=== PATIENT | female | born 1950 | race American Indian/Alaskan Native ===

== ENCOUNTER 2019-06-24 10:23 | Outpatient (REF) | payer OTHER, SELFPAY ==
[2019-06-24 17:00] LABS: Anion Gap 7.4 mmol/L; BUN 20 mg/dL; CO2 29.6 mmol/L; CREATININE 1.23 mg/dL; Calcium 9.7 mg/dL; Calculated LDL 173 mg/dL; Chloride 105 mmol/L; Cholesterol 251 mg/dL; Estimated GFR 58.34; Glucose 91 mg/dL; HDL Cholesterol 65 mg/dL; Potassium 4.9 mmol/L; Sodium 142 mmol/L; Triglyceride 65 mg/dL
== END 2019-06-24 10:43 ==
LOC: NCHCN 10:23
PROVIDERS: Visit Provider Family Medicine
DX: Z82.49 Family history of ischemic heart disease and other diseases of the circulatory system (principal); Z13.228 Encounter for screening for other metabolic disorders; Z13.220 Encounter for screening for lipoid disorders
CPT/HCPCS: 80048; 80061

== ENCOUNTER 2019-11-27 14:51 | Outpatient (REF) | payer OTHER, SELFPAY ==
[2019-11-27 21:25] LABS: Absolute Basophil Count 0.01 k/cumm; Absolute Eosinophil Count 0.04 k/cumm; Absolute Lymphocyte Count 2.51 k/cumm; Absolute Monocyte Count 0.83 k/cumm; Absolute Neutrophil Count 4.55 k/cumm; Basophils % 0.1; Eosinophils % 0.5; HCT 42.4 %; HGB 13.8 g/dL; Lymphocytes % 31.6; Mean Corp. HGB Concentration 32.5 g/dL; Mean Corpuscular Hemoglobin 26.3 pg; Mean Corpuscular Volume 80.9 fL; Mean Platelet Volume 11.2 fL; Monocytes % 10.5; Neutrophils % 57.3; Platelet Count 345 x1000/uL; RBC 5.24 m/cumm; RBC Distribution Width 14.9 %; White Blood Cell Count 7.94 k/cumm
[2019-11-27 22:05] LABS: ALT 35 U/L; AST 30 U/L; Albumin 4.4 g/dL; Alkaline Phosphatase 114 U/L; Anion Gap 9.4 mmol/L; BUN 17 mg/dL; Bilirubin, Total 0.6 mg/dL; CO2 26.6 mmol/L; CREATININE 1.09 mg/dL; Calcium 9.7 mg/dL; Chloride 102 mmol/L; Glucose 84 mg/dL; Potassium 4.1 mmol/L; Sodium 138 mmol/L; TSH (W/Ref FT4) 2.87 uIU/mL; Total Protein 7.8 g/dL
[2019-11-30 09:47] LABS: Vitamin D 25 Total 49.3 ng/ml
[2019-12-01 10:48] LABS: Lyme Ab w Rflx to Lyme Confirm Negative (Negative)
[2019-12-01 18:26] LABS: Anaplasma phagocytophilum Negative (Negative); B. miyamotoi PCR Negative (Negative); Babesia divergens/MO-1 Negative (Negative); Babesia duncani Negative (Negative); Babesia microti Negative (Negative); Ehrlichia chaffeensis Negative (Negative); Ehrlichia ewingii/canis Negative (Negative); Ehrlichia muris eauclairensis Negative (Negative)
== END 2019-11-27 15:11 ==
LOC: NCHCN 14:51
PROVIDERS: PCP Family Medicine; Visit Provider Family Medicine
DX: E78.5 Hyperlipidemia, unspecified (principal); M79.10 Myalgia, unspecified site; R53.83 Other fatigue
CPT/HCPCS: 80053; 82306; 87798; 84443; 85025; 86618

== ENCOUNTER 2020-06-03 17:38 | Outpatient (REF) | payer OTHER, SELFPAY ==
[2020-06-03 20:53] LABS: Calculated LDL 146 mg/dL; Cholesterol 225 mg/dL; Glucose 86 mg/dL; HDL Cholesterol 62 mg/dL; Triglyceride 86 mg/dL
== END 2020-06-03 17:58 ==
LOC: NCHCN 17:38
PROVIDERS: PCP Family Medicine; Visit Provider Family Medicine
DX: Z00.00 Encounter for general adult medical examination without abnormal findings (principal); E78.5 Hyperlipidemia, unspecified
CPT/HCPCS: 80061; 82947

== ENCOUNTER 2021-11-03 16:10 | Outpatient (REF) | payer MEDICARE, SELFPAY ==
[2021-11-05 12:12] LABS: COVID-19 RT-PCR UVMMC Result Negative (Negative)
== END 2021-11-03 16:11 | disposition home or self-care (01) ==
LOC: NCHCN 16:10
PROVIDERS: PCP Family Medicine; Visit Provider Family Medicine
DX: Z20.822 Contact with and (suspected) exposure to COVID-19 (principal); J06.9 Acute upper respiratory infection, unspecified
CPT/HCPCS: U0003

== ENCOUNTER 2022-02-08 08:51 | Outpatient (REF) | payer MEDICARE, SELFPAY ==
[2022-02-08 14:56] LABS: ESR 8 mm/hr (0-30)
[2022-02-08 14:57] LABS: Abs Immature Grans 0.01 10^3/uL (0.0-0.06); Absolute Basophil Count 0.02 10^3/uL (0.0-0.2); Absolute Eosinophil Count 0.05 10^3/uL (0.0-0.7); Absolute Lymphocyte Count 2.01 10^3/uL (1.2-3.4); Absolute Monocyte Count 0.54 10^3/uL (0.1-0.8); Absolute Neutrophil Count 2.59 10^3/uL (1.2-6.7); Basophils % 0.4; HCT 40.3 % (36.0-46.0); Immature Grans % 0.2; Lymphocytes % 38.5; MCH 26.4 pg (27.0-33.0); MCHC 32.3 % (32.0-36.0); MCV 82 fL (80-95); MPV 10.7 fL (8.0-11.0); Monocytes % 10.3; Neutrophils % 49.6; Platelet Count 278 10^3/uL (130-400); RBC 4.93 10^6/uL (3.93-5.22); RDW 14.5 % (11.7-14.6); RDW-SD 43.3 fL; WBC 5.22 10^3/uL (4.4-10.8)
[2022-02-08 15:57] LABS: Iron 88 ug/dL (50-170)
[2022-02-08 16:27] LABS: ALT 29 U/L (14-59); AST 29 U/L (15-37); Albumin 3.5 g/dL (3.4-5.0); Alkaline Phosphatase 90 U/L (46-116); Anion Gap 10.1 mmol/L (3-11); BUN 19 mg/dL (7-18); Bilirubin, Total 0.5 mg/dL (0.2-1.0); CO2 27.9 mmol/L (21.0-32.0); CREATININE 1.1 mg/dL (0.55-1.02); Calcium 8.6 mg/dL (8.5-10.1); Chloride 115 mmol/L (98-107); Estimated GFR 48.82 (mL/min/1.73m2); Ferritin 87 ng/mL (8-252); Glucose 85 mg/dL (74-106); Potassium 4.4 mmol/L (3.5-5.1); Sodium 153 mmol/L (136-145); TSH (W/Ref FT4) 1.71 uIU/mL (0.36-3.74); Total Protein 6.6 g/dL (6.4-8.2); Vitamin B12 654 pg/mL (193-986)
[2022-02-08 17:07] LABS: C-Reactive Protein 0.12 mg/dL (0.0-0.3)
[2022-02-09 10:02] LABS: HIV-1/2 Ag & Ab Screen Negative (Negative)
[2022-02-09 10:14] LABS: Hepatitis C Ab w Rflx HCV PCR Negative (Negative)
== END 2022-02-08 08:52 | disposition home or self-care (01) ==
LOC: NCHCN 08:51
PROVIDERS: PCP Family Medicine; Visit Provider Family Medicine
DX: R63.4 Abnormal weight loss (principal); Z11.4 Encounter for screening for human immunodeficiency virus [HIV]; Z11.59 Encounter for screening for other viral diseases; R53.83 Other fatigue
CPT/HCPCS: 80053; 85652; 86803; 87389; 82607; 82728; 83540; 84443; 85025; 86140

== ENCOUNTER 2022-02-12 18:34 | Outpatient (REF) | payer MEDICARE, SELFPAY ==
[2022-02-12 21:45] LABS: Anion Gap 4.6 mmol/L (3-11); BUN 23 mg/dL (7-18); CO2 27.4 mmol/L (21.0-32.0); Chloride 101 mmol/L (98-107); Glucose 86 mg/dL (74-106); Potassium 3.6 mmol/L (3.5-5.1); Sodium 133 mmol/L (136-145)
== END 2022-02-12 18:35 | disposition home or self-care (01) ==
LOC: NCHCN 18:34
PROVIDERS: PCP Family Medicine; Visit Provider Family Medicine
DX: E87.0 Hyperosmolality and hypernatremia (principal)
CPT/HCPCS: 80048

== ENCOUNTER 2022-03-07 10:31 | Outpatient (REF) | payer MEDICARE, SELFPAY ==
[2022-03-07 17:24] LABS: Anion Gap 8.5 mmol/L (3-11); BUN 21 mg/dL (7-18); CO2 29.5 mmol/L (21.0-32.0); Chloride 105 mmol/L (98-107); Glucose 97 mg/dL (74-106); Potassium 3.8 mmol/L (3.5-5.1); Sodium 143 mmol/L (136-145)
== END 2022-03-07 10:32 | disposition home or self-care (01) ==
LOC: NCHCN 10:31
PROVIDERS: PCP Family Medicine; Visit Provider Family Medicine
DX: E87.1 Hypo-osmolality and hyponatremia (principal)
CPT/HCPCS: 80048

== ENCOUNTER 2022-04-20 20:57 | Outpatient (REF) | payer MEDICARE, SELFPAY ==
[2022-04-20 21:06] LABS: Abs Immature Grans 0.03 10^3/uL (0.0-0.06); Absolute Basophil Count 0.03 10^3/uL (0.0-0.2); Absolute Eosinophil Count 0.09 10^3/uL (0.0-0.7); Absolute Lymphocyte Count 2.32 10^3/uL (1.2-3.4); Absolute Monocyte Count 0.83 10^3/uL (0.1-0.8); Absolute Neutrophil Count 4.59 10^3/uL (1.2-6.7); Basophils % 0.4; Eosinophils % 1.1; HCT 41.1 % (36.0-46.0); HGB 13.4 g/dL (11.2-15.7); Immature Grans % 0.4; Lymphocytes % 29.4; MCH 26.4 pg (27.0-33.0); MCHC 32.6 % (32.0-36.0); MCV 81 fL (80-95); MPV 10.6 fL (8.0-11.0); Monocytes % 10.5; Neutrophils % 58.2; Platelet Count 288 10^3/uL (130-400); RBC 5.08 10^6/uL (3.93-5.22); RDW-SD 41.1 fL; WBC 7.89 10^3/uL (4.4-10.8)
[2022-04-20 21:24] LABS: ALT 33 U/L (14-59); AST 28 U/L (15-37); Albumin 4.1 g/dL (3.4-5.0); Alkaline Phosphatase 122 U/L (46-116); Anion Gap 7.3 mmol/L (3-11); BUN 22 mg/dL (7-18); Bilirubin, Total 0.4 mg/dL (0.2-1.0); CO2 28.7 mmol/L (21.0-32.0); Calcium 9.7 mg/dL (8.5-10.1); Chloride 99 mmol/L (98-107); Estimated GFR 59.86 (mL/min/1.73m2); Glucose 85 mg/dL (74-106); Lipase 122 U/L (73-393); Potassium 4.4 mmol/L (3.5-5.1); Sodium 135 mmol/L (136-145); Total Protein 7.6 g/dL (6.4-8.2)
== END 2022-04-20 20:58 | disposition home or self-care (01) ==
LOC: NCHCN 20:57
PROVIDERS: PCP Family Medicine; Visit Provider Family Medicine
DX: R53.83 Other fatigue (principal); R19.4 Change in bowel habit
CPT/HCPCS: 80053; 83690; 85025

== ENCOUNTER 2022-10-02 12:36 | Outpatient (REF) | payer MEDICARE, SELFPAY ==
[2022-10-02 16:18] LABS: Calculated LDL 160 mg/dL (<100); Cholesterol 244 mg/dL (<200); Ferritin 89 ng/mL (8-252); Folate 9.7 ng/mL (8.6-20.0); HDL Cholesterol 73 mg/dL (40-60); Triglyceride 58 mg/dL (<150); Vitamin B12 679 pg/mL (193-986)
[2022-10-02 16:52] LABS: Vitamin D 25 Total 41.4 ng/mL (30-100)
== END 2022-10-02 12:37 | disposition home or self-care (01) ==
LOC: NCHCN 12:36
PROVIDERS: PCP Family Medicine; Visit Provider Family Medicine
DX: R42 Dizziness and giddiness (principal); R53.83 Other fatigue; E78.5 Hyperlipidemia, unspecified; R79.89 Other specified abnormal findings of blood chemistry; Z79.899 Other long term (current) drug therapy
CPT/HCPCS: 80061; 82306; 82607; 82728; 82746; 83036; 83540; 83550

== ENCOUNTER 2022-10-03 18:38 | Outpatient (REF) | payer MEDICARE, SELFPAY ==
[2022-10-03 16:30] LABS: Iron 97 ug/dL (50-170); Total Iron Binding Capacity 324 ug/dL (250-450); Transferrin Sat 30 % (15-50)
[2022-10-03 16:52] LABS: Vitamin D 25 Total 42.2 ng/mL (30-100)
[2022-10-03 16:53] LABS: Hemoglobin A1C 5.2 % (<5.7)
[2022-10-03 17:03] LABS: Calculated LDL 153 mg/dL (<100); Cholesterol 236 mg/dL (<200); Ferritin 87 ng/mL (8-252); HDL Cholesterol 69 mg/dL (40-60); Triglyceride 71 mg/dL (<150); Vitamin B12 671 pg/mL (193-986)
== END 2022-10-03 18:39 | disposition home or self-care (01) ==
LOC: NCHCN 18:38
PROVIDERS: PCP Family Medicine; Visit Provider Family Medicine
DX: R42 Dizziness and giddiness (principal); R53.83 Other fatigue
CPT/HCPCS: 80061; 82306; 82607; 82728; 82746; 83036; 83540; 83550

== ENCOUNTER 2022-10-12 19:05 | Outpatient (REF) | payer MEDICARE, SELFPAY ==
[2022-10-12 17:50] LABS: TSH (W/Ref FT4) 1.58 uIU/mL (0.36-3.74)
== END 2022-10-12 19:06 | disposition home or self-care (01) ==
LOC: NCHCN 19:05
PROVIDERS: PCP Family Medicine; Visit Provider Family Medicine
DX: R53.83 Other fatigue (principal)
CPT/HCPCS: 84443

== ENCOUNTER 2023-08-20 18:44 | Outpatient (REF) | payer MEDICARE, SELFPAY ==
[2023-08-20 22:07] LABS: HCT 39.2 % (36.0-46.0); HGB 12.9 g/dL (11.2-15.7); MCH 26.3 pg (27.0-33.0); MCHC 32.9 % (32.0-36.0); MCV 80 fL (80-95); MPV 11.2 fL (8.0-11.0); Platelet Count 262 10^3/uL (130-400); RBC 4.91 10^6/uL (3.93-5.22); RDW 14.2 % (11.7-14.6); RDW-SD 41.2 fL; WBC 6.38 10^3/uL (4.4-10.8)
[2023-08-20 22:24] LABS: ALT 23 U/L (14-59); AST 23 U/L (15-37); Albumin 3.9 g/dL (3.4-5.0); Alkaline Phosphatase 100 U/L (46-116); Anion Gap 11.3 mmol/L (3-11); BUN 21 mg/dL (7-18); Bilirubin, Total 0.3 mg/dL (0.2-1.0); CO2 24.7 mmol/L (21.0-32.0); CREATININE 1.1 mg/dL (0.55-1.02); Calcium 9.4 mg/dL (8.5-10.1); Chloride 104 mmol/L (98-107); Estimated GFR 53.06 (mL/min/1.73m2); Glucose 102 mg/dL (74-106); Sodium 140 mmol/L (136-145); Total Protein 7.5 g/dL (6.4-8.2)
== END 2023-08-20 18:45 | disposition home or self-care (01) ==
LOC: NCHCN 18:44
PROVIDERS: PCP Family Medicine; Visit Provider Family Medicine
DX: R71.8 Other abnormality of red blood cells (principal); G47.61 Periodic limb movement disorder
CPT/HCPCS: 80053; 85027

== ENCOUNTER 2024-03-17 16:27 | Outpatient (REF) | payer MEDICARE, SELFPAY ==
[2024-03-17 22:11] LABS: Abs Immature Grans 0.02 10^3/uL (0.0-0.06); Absolute Basophil Count 0.02 10^3/uL (0.0-0.2); Absolute Monocyte Count 0.95 10^3/uL (0.1-0.8); Absolute Neutrophil Count 4.31 10^3/uL (1.2-6.7); Basophils % 0.3 %; Eosinophils % 1.3 %; HCT 41.1 % (36.0-46.0); HGB 13.6 g/dL (11.2-15.7); Immature Grans % 0.3 %; Lymphocytes % 31.6 %; MCH 26.5 pg (27.0-33.0); MCHC 33.1 % (32.0-36.0); MCV 80 fL (80-95); Neutrophils % 54.5 %; Platelet Count 288 10^3/uL (130-400); RBC 5.13 10^6/uL (3.93-5.22); RDW 14.1 % (11.7-14.6); RDW-SD 41.1 fL
[2024-03-17 23:12] LABS: Iron 55 ug/dL (50-170); Total Iron Binding Capacity 332 ug/dL (250-450); Transferrin Sat 17 % (15-50)
[2024-03-17 23:15] LABS: Ferritin 71 ng/mL (8-252)
== END 2024-03-17 16:28 | disposition home or self-care (01) ==
LOC: NCHCN 16:27
PROVIDERS: PCP Family Medicine; Visit Provider Family Medicine
DX: R61 Generalized hyperhidrosis (principal)
CPT/HCPCS: 82728; 83540; 83550; 85025